=== PATIENT | male | born 1975 | race African-American/Black ===

== ENCOUNTER 2018-04-14 11:03 | Emergency (ER) | payer SELFPAY ==
[~2018-04-14] VITALS: Ht 172.7 cm; Wt 63.5 kg
[2018-04-14 12:08] VITALS: BP 159/99
--- NOTE | 2018-04-14 12:09 | RAD ---
Indication: Trauma TECHNIQUE: 3 views of the left wrist COMPARISON: None Findings/ impression: No acute fracture or dislocation. Soft tissue swelling is seen in the wrist. No arthritic process. Electronically signed by: Lm Whitehead DO (04/14/2018 12:06 PM) [id number]
[2018-04-14] MEDS ORDERED: HYDR-971 PO (12:20)
[2018-04-14] MEDS ORDERED: IBUP-1060 PO (12:20)
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
== END 2018-04-14 12:29 | disposition home or self-care (01) ==
LOC: ER 11:03
DX: S60.212A Contusion of left wrist, initial encounter (principal); F10.20 Alcohol dependence, uncomplicated; Y90.9 Presence of alcohol in blood, level not specified; W18.39XA Other fall on same level, initial encounter; Y93.02 Activity, running; Y92.89 Other specified places as the place of occurrence of the external cause; Y99.8 Other external cause status
CPT/HCPCS: 73110; 99284

== ENCOUNTER 2020-03-10 21:28 | Emergency (ER) | payer SELFPAY ==
[~2020-03-10] VITALS: Ht 170.2 cm; Wt 59.0 kg
[~2020-03-10 21:28] MED LIST: HYDR-3164 PO; IBUP-1060 PO
[2020-03-10 23:31] VITALS: BP 152/91
[2020-03-11] MEDS ORDERED: IBUPROFEN 200 MG TABLET. PO ONE (00:30)
[2020-03-11] MEDS ORDERED: CYCLOBENZAPRINE 10 MG TABLET. PO ONE (00:30)
[2020-03-11] MEDS ORDERED: IBUP-1007 PO (01:06)
[2020-03-11] MEDS ORDERED: ORPH100T PO (01:06)
--- NOTE | 2020-03-11 01:06 | PHYS DOC ---
Past Medical History Past Medical History: No Pertinent History Past Surgical History: No Surgical History Smoking Status: Current Every Day Smoker Alcohol Use: Heavy Drug Use: Marijuana General Adult EDM: Chief Complaint: SHOUDLER HPI: HPI: Patient is a 44 year old [f__sex] who presents with [] Review of Systems: Review of Systems: Constitutional: Denies fever or chills. [] Eyes: Denies change in visual acuity. [] HENT: Denies nasal congestion or sore throat. [] Respiratory: Denies cough or shortness of breath. [] Cardiovascular: Denies chest pain or edema. [] GI: Denies abdominal pain, nausea, vomiting, bloody stools or diarrhea. [] : Denies dysuria. [] Musculoskeletal: Denies back pain or joint pain. [] Integument: Denies rash. [] Neurologic: Denies headache, focal weakness or sensory changes. [] Endocrine: Denies polyuria or polydipsia. [] Lymphatic: Denies swollen glands. [] Psychiatric: Denies depression or anxiety. [] Heart Score: Risk Factors: Risk Factors: DM, Current or recent (<one month) smoker, HTN, HLP, family history of CAD, obesity. Risk Scores: Score 0 - 3: 2.5% MACE over next 6 weeks - Discharge Home Score 4 - 6: 20.3% MACE over next 6 weeks - Admit for Clinical Observation Score 7 - 10: 72.7% MACE over next 6 weeks - Early Invasive Strategies Current Medications: Current Medications Medications (Trade) Dose Ordered Sig/Henrique Start Time Stop Time Status Last Admin Dose Admin Cyclobenzaprine HCl (Flexeril) 10 mg 1X ONCE 03/11/20 00:30 03/11/20 00:31 DC 03/11/20 00:20 10 MG Ibuprofen (Motrin) 600 mg 1X ONCE 03/11/20 00:30 03/11/20 00:31 DC 03/11/20 00:20 600 MG Allergies: Allergies: Allergies Coded Allergies Type Severity Reaction Last Updated Verified No Known Drug Allergies 04/14/18 No Physical Exam: PE: Constitutional: Well developed, well nourished, no acute distress, non-toxic appearance. [] HENT: Normocephalic, atraumatic, bilateral external ears normal, oropharynx moist, no oral exudates, nose normal. [] Eyes: PERRLA, EOMI, conjunctiva normal, no discharge. [] Neck: Normal range of motion, no tenderness, supple, no stridor. [] Cardiovascular:Heart rate regular rhythm, no murmur [] Lungs & Thorax: Bilateral breath sounds clear to auscultation [] Abdomen: Bowel sounds normal, soft, no tenderness, no masses, no pulsatile masses. [] Skin: Warm, dry, no erythema, no rash. [] Back: No tenderness, no CVA tenderness. [] Extremities: No tenderness, no cyanosis, no clubbing, ROM intact, no edema. [] Neurologic: Alert and oriented X 3, normal motor function, normal sensory function, no focal deficits noted. [] Psychologic: Affect normal, judgement normal, mood normal. [] Current Patient Data: Vital Signs: Vital Signs Date Time Temp Pulse Resp B/P (MAP) Pulse Ox O2 Delivery O2 Flow Rate FiO2 03/10/20 23:31 90 16 152/91 (111) 100 Room Air 03/10/20 22:30 98.5 98.5 EKG: EKG: [] Radiology/Procedures: Radiology/Procedures: [] Course & Med Decision Making: Course & Med Decision Making Pertinent Labs and Imaging studies reviewed. (See chart for details) [] Dragon Disclaimer: Dragon Disclaimer: This electronic medical record was generated, in whole or in part, using a voice recognition dictation system. Departure Departure Impression: Primary Impression: Strain of thoracic back region Disposition: 01 DC HOME SELF CARE/HOMELESS Condition: STABLE Referrals: NO PCP (PCP) FRANCI MOBLEY MD Patient Instructions: Thoracic Strain, Efms-ej-Thmr Scripts Ibuprofen (IBUPROFEN) 600 Mg Tablet 600 MG PO PRN Q6HRS PRN for INFLAMMATION, #20 TAB Prov: ANI DUARTE DO 03/11/20 Orphenadrine Citrate (ORPHENADRINE CITRATE) 100 Mg Tablet.er 100 MG PO BID PRN for MUSCLE PAIN, #14 TAB Prov: ANI DUARTE DO 03/11/20 ANI DUARTE DO Mar 11, 2020 01:06
--- NOTE | 2020-03-11 01:47 | RAD ---
EXAM: SCAPULA LEFT 03/11/2020 12:09 AM CLINICAL INDICATION:Pain status post fall COMPARISON:None TECHNIQUE:2 views of the left at FINDINGS:No scapular fracture visualized. Glenohumeral and acromioclavicular alignment is normal. Visualized left hemithorax is intact. IMPRESSION:No acute fracture. Electronically signed by: Sugar Pete MD (03/11/2020 1:44 AM) [id number]
== END 2020-03-11 01:26 | disposition home or self-care (01) ==
LOC: ER 21:28
DX: S29.012A Strain of muscle and tendon of back wall of thorax, initial encounter (principal); M25.512 Pain in left shoulder; F17.200 Nicotine dependence, unspecified, uncomplicated; F12.90 Cannabis use, unspecified, uncomplicated; F10.10 Alcohol abuse, uncomplicated; X58.XXXA Exposure to other specified factors, initial encounter; Y93.89 Activity, other specified; Y92.89 Other specified places as the place of occurrence of the external cause; Y99.8 Other external cause status
CPT/HCPCS: 73010; 99283